=== PATIENT | male | born 1950 | race Caucasian/White ===

== ENCOUNTER 2016-08-08 15:22 | Emergency (ER) | payer OTHER ==
[2016-08-08 15:31] VITALS: BP 138/80; TEMP 98.3; BMI 31.6
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
== END 2016-08-08 17:53 | disposition home or self-care (01) ==
LOC: ED 15:22
DX: M25.512 Pain in left shoulder (principal); M25.522 Pain in left elbow; R07.89 Other chest pain; M54.2 Cervicalgia; E11.9 Type 2 diabetes mellitus without complications; W20.8XXA Other cause of strike by thrown, projected or falling object, initial encounter; F17.210 Nicotine dependence, cigarettes, uncomplicated
CPT/HCPCS: 82962; 99283

== ENCOUNTER 2016-09-15 13:10 | Outpatient (CLI) ==
[2016-09-15 13:37] LABS: FLU INTERNAL QC INTERNAL QC VALID; RAPID FLU A NEGATIVE (NEGATIVE); RAPID FLU B NEGATIVE (NEGATIVE)
== END 2016-09-15 13:11 ==
LOC: LAB 13:10
PROVIDERS: ATTEND Nurse Practitioner Family
DX: J02.9 Acute pharyngitis, unspecified (principal); R05 Cough
CPT/HCPCS: 87651; 87804; 87880

== ENCOUNTER 2017-10-16 10:09 | Outpatient (CLI) | payer OTHER ==
--- NOTE | 2017-10-16 12:36 | DI ---
EXAM: Chest two views HISTORY: Cough COMPARISON: 08/08/2016 TECHNIQUE: Two views of the chest were performed FINDINGS: The lungs are clear. There is no pleural effusion or pneumothorax. The heart is normal i n size. The mediastinal contour is normal. There are no acute abnormalities of the bones. Questiona ble hiatal hernia, unchanged IMPRESSION: 1. No acute cardiopulmonary process. 2. Questionable hiatal hernia, unchanged
== END 2017-10-16 10:10 | disposition home or self-care (01) ==
LOC: FCC-LAB 10:09
PROVIDERS: ATTEND Nurse Practitioner Family
DX: R53.83 Other fatigue (principal); R36.9 Urethral discharge, unspecified; R05 Cough; Z72.0 Tobacco use; Z20.2 Contact with and (suspected) exposure to infections with a predominantly sexual mode of transmission
CPT/HCPCS: 36415; 80053; 80074; 81001; 86592; 86631; 86695; 86696; 87389; 87800

== ENCOUNTER 2018-04-24 18:22 | Emergency (ER) ==
[2018-04-24 18:31] VITALS: BP 151/83; TEMP 98; BMI 30.1
[2018-04-24] MEDS ORDERED: DECADRON 4 MG/ML SDV IM STA ×2 (18:36→18:46)
[2018-04-24] MEDS ORDERED: DUONEB NEB STA (18:36)
[2018-04-24] MEDS ORDERED: ZITHROMAX PO STA (18:37)
[2018-04-24] MEDS ORDERED: ZITHROMAX ONE (18:40)
--- NOTE | 2018-04-24 18:40 | ED.PDOC ---
General ED Provider: Dr. ROB ROWLAND Chief Complaint: Respiratory Complaint Stated Complaint: flu like symp Time Seen by Physician: 18:38 Mode of Arrival: Walk-In Information Source: Patient Exam Limitations: No limitations Nursing and Triage Documentation Reviewed and Agree: Yes Does patient meet sepsis criteria?: No (seen with geovanni) System Inflammatory Response Syndrome: Not Applicable Sepsis Protocol: For patient's 13 years and over: Temp is 96.8 and below OR 101 and greater Pulse >90 BPM Resp >20/minute Acutely Altered Mental Status Are patient's symptoms suggestive of a new infection, such as: -Pneumonia -Skin, Soft Tissue -Endocarditis -UTI -Bone, Joint Infection -Implantable Device -Acute Abdominal Infection -Wound Infection -Meningitis -Blood Stream Catheter Infection -Unknown Respiratory Complaint Exam - Respiratory Complaint/Exam Onset/Duration: 1 week Symptoms Are: Still present Timing: Intermittent Initial Severity: Moderate Current Severity: Mild Location: Nose, Throat, Chest Character: Reports: Non-productive cough Aggravating: Reports: URI Alleviating: Reports: None Associated Signs and Symptoms: Reports: URI, Nasal congestion. Denies: Rapid breathing, Dyspnea, Fever, Chills, Chest pain, Pleuritic chest pain, Wheezing, Hemoptysis, Dizziness, Calf pain, Calf swelling, Edema, Hoarseness, Sinus discomfort, Vomiting, Sore throat, Weight loss, Decreased oral intake, Increased thirst, Increased appetite, Increased urination Related History: Reports: Similar episode Related Surgical History: Reports: None Pulmonary Embolism Risk Factors: Smoking Cardiac Risk Factors: Reports: Smoking Pseudomonas Risk Factors: Reports: None Tuberculosis Risk Factors: Reports: None Status Asthmaticus Risk Factors: Reports: None Home Oxygen Use: No Recent Stress Test: No Recent Echo/LV Function: No Current Antibiotic Use: No Current Asthma Medication Use: No Respiratory Distress: None Inadequate Respiratory Effort: No Dysphagia Present: No Stridor Present: No JVD Present: No Accessory Muscle Use: No Retractions: Not Present Diminished Breath Sounds: No Sinus Tenderness: None Grunting Respirations: No Kussmaul Respirations: No Differential Diagnoses: Pneumonia, Bronchitis, URI, Influenza, Lower Resp. Infection Review of Systems - Review Of Systems Constitutional: Reports: Malaise Eyes: Reports: No symptoms Ears, Nose, Mouth, Throat: Reports: No symptoms Respiratory: Reports: Cough Cardiac: Reports: No symptoms GI: Reports: No symptoms : Reports: No symptoms Musculoskeletal: Reports: No symptoms Skin: Reports: No symptoms Neurological: Reports: No symptoms Endocrine: Reports: No symptoms Hematologic/Lymphatic: Reports: No symptoms All Other Systems: Reviewed and Negative Past Medical History - Past Medical History Previously Healthy: No Endocrine: Reports: DM 2 Cardiovascular: Reports: None Respiratory: Reports: None Hematological: Reports: None Gastrointestinal: Reports: None Genitourinary: Reports: None Neuro/Psych: Reports: None Musculoskeletal: Reports: None Cancer: Reports: None Other Pertinent Past Medical History: HERNIA REPAIR X2[ End ]dm-diabetes has not been treated inpast 5 years - Surgical History General Surgical History: Reports: Other (HERNIA REPAIR X2) - Family History Family History: Reports: Unknown - Social History Smoking Status: Current every day smoker Hx Substance Use: No Alcohol Screening: Occasionally Physical Exam - Physical Exam Appearance: Well-appearing, No pain distress, Well-nourished Eyes: JEVON, EOMI, Conjunctiva clear ENT: Ears normal, Nose normal, Oropharynx normal Respiratory: Rhonchi Cardiovascular: RRR, Pulses normal, No rub, No murmur GI/: Soft, Nontender, No masses, Bowel sounds normal, No Organomegaly Musculoskeletal: Normal strength, ROM intact, No edema, No calf tenderness Skin: Warm, Dry, Normal color Neurological: Sensation intact, Motor intact, Reflexes intact, Cranial nerves intact, Alert, Oriented Psychiatric: Affect appropriate, Mood appropriate Critical Care Note - Critical Care Note Total Time (mins): 0 Course - Course Orders, Labs, Meds: Orders Category Date Time Status NEBULIZER TREATMENT Stat CARDIO 04/24/18 18:36 Ordered Azithromycin [Zithromax] MEDS 04/24/18 18:37 Stat 1,000 mg PO ONCE STA Dexamethasone 4 mg/ml Inj [Decadron 4 mg/ml Sdv] MEDS 04/24/18 18:36 Stat 8 mg IM ONCE STA Ipratropium/Albuterol Neb [Duoneb] MEDS 04/24/18 18:36 Stat 1 vial NEB ONCE STA Medications Discontinued Medications Generic Name Dose Route Start Last Admin Trade Name Freq PRN Reason Stop Dose Admin Albuterol/Ipratropium 1 vial 04/24/18 18:36 Duoneb NEB 04/24/18 18:37 ONCE STA Azithromycin 1,000 mg 04/24/18 18:37 Zithromax PO 04/24/18 18:38 ONCE STA Dexamethasone Sodium Phosphate 8 mg 04/24/18 18:36 Decadron 4 Mg/Ml Sdv IM 04/24/18 18:37 ONCE STA Vital Signs: Temp Pulse Resp BP Pulse Ox 04/24/18 18:25 98.0 F 58 L 20 151/83 H 96 Departure - Departure Time of Disposition: 19:00 Disposition: HOME SELF-CARE Discharge Problem: Bronchitis, Viral syndrome Instructions: Viral Syndrome (ED), Acute Bronchitis (ED) Condition: Good Pt referred to PMD for follow-up: Yes IPMP verified?: No Additional Instructions: Please call your Family Physician as soon as possible to schedule a follow-up appointment. Allergies/Adverse Reactions: Allergies No Known Allergies Allergy (Verified 04/24/18 18:29) Home Medications: Ambulatory Orders Tamsulosin HCl [Flomax] 0.4 mg PO DAILY 04/24/18
--- NOTE | 2018-04-24 19:46 | DI ---
EXAM: Two views of the chest. History: Cough. Comparison: Chest radiograph 10/16/2017 Findings: Heart size is normal. Hiatal hernia. There is bronchial wall thickening. No consolidati on. No pleural fluid and no pneumothorax. No acute osseous abnormalities. Impression: 1. Bronchial wall thickening but no consolidated pneumonia. 2. Hiatal hernia
== END 2018-04-24 19:59 | disposition home or self-care (01) ==
LOC: ED 18:22
DX: J40 Bronchitis, not specified as acute or chronic (principal); B34.9 Viral infection, unspecified; F17.210 Nicotine dependence, cigarettes, uncomplicated
CPT/HCPCS: 94640; 96372; 99283

== ENCOUNTER 2018-06-05 11:39 | Outpatient (CLI) ==
--- NOTE | 2018-06-05 12:22 | DI ---
EXAM: CHEST FRONTAL AND LATERAL VIEWS HISTORY: Cough. COMPARISON: 04/24/2018 FINDINGS: Heart size remains within normal limits. Redemonstration of aortic ectasia. No acute inf iltrates are seen. No vascular congestion. There is no consolidation, visible pleural fluid or pneu mothorax. Bones reveal no acute fracture. IMPRESSION: No acute cardiopulmonary process.
--- NOTE | 2018-06-05 12:24 | DI ---
EXAM: LEFT KNEE. HISTORY: Knee pain FINDINGS: Left knee three-view. Articular cartilage width is normal. There is no fracture or joint effusion. Bone density and soft tissues are within normal limits. IMPRESSION: Within normal limits.
== END 2018-06-05 11:40 | disposition home or self-care (01) ==
LOC: RAD 11:39
PROVIDERS: ATTEND Nurse Practitioner Family
DX: M25.562 Pain in left knee (principal)

== ENCOUNTER 2018-06-14 06:50 | Outpatient (CLI) | payer OTHER ==
--- NOTE | 2018-06-14 09:59 | US ---
EXAM: ULTRASOUND AORTA HISTORY: Aortic ectasia FINDINGS: Ultrasound aorta. Real time carrillo-scale ultrasound, color Doppler imaging and spectral dolores lysis performed. The AP and transverse measurements respectively, in centimeters are as follows: Proximal: - (Not identified) Mid: 1.8 x 1.7 Distal: 1.8 x 1.9 Right iliac: - Left iliac: - Distal aortic PSV (m/s): Not provided IMPRESSION: Limitations to the exam as described. The visualized aorta had normal caliber sonograph ically.
== END 2018-06-14 06:51 | disposition home or self-care (01) ==
LOC: RAD 06:50
PROVIDERS: ATTEND Nurse Practitioner Family
DX: I77.819 Aortic ectasia, unspecified site (principal)
CPT/HCPCS: 76775

== ENCOUNTER 2018-07-17 06:32 | Outpatient (CLI) ==
--- NOTE | 2018-07-22 10:05 | ECHO2D ---
Date of Exam: 07/17/18 Ordering Physician: DR. KADI ULLOA Room #: OP Reason for Echo: COPD, COUGH, PVC, PAC, SYSTOLIC MURMUR, AORTIC ECTASIA M-Mode Normal Adult Results LV Dimensions Normal Adult Results AoV Opening excursions >1.6 >1.6 LVEDD-base- 3.5-5.8 4.6 Ao root dimensions 2.0-3.7 3.8 LVESD-base- 3.1-4.6 L. Atrium dimensions 1.9-3.8 4.4 Post. Wall thickness 0.8-1.1 1.0 IV septum (thickness) 0.7-1.2 1.1 Post. Wall excursion 0.72-1.3 NORMAL Septal motion NORMAL Systolic motion R. Ventricular cavity 1.5-2.0 NORMAL LVEF 60% 65% Paradoxical septal wall motion NORMAL 2-D : 2-D M Mode Echocardiogram was performed using apical four chamber and left parasternal long and short axis views. Mitral, tricuspid and aortic valves appear to be normal. Contractility of the left ventricle seems to be normal, so is the cavity size. Left atrial cavity size and aortic root appear to be normal. There is no pericardial effusion. There is no thrombus noted in the left ventricular or left aortic cavity. No mitral valve prolapse noted. M-MODE: MV: NORMAL AV: NORMAL TV: NORMAL PV: CHAMBER SIZE: ENLARGED LEFT ATRIAL CAVITY WALL MOTION: NORMAL PERICARDIUM: NORMAL INTERPRETATION: 1. ENLARGED LEFT ATRIAL CAVITY (4.3 CM) 2. NORMAL LEFT VENTRICULAR CONTRACTILITY 3. NORMAL VALVES MTDD
== END 2018-07-17 06:33 | disposition home or self-care (01) ==
LOC: CAR 06:32
PROVIDERS: ATTEND Internal Medicine
DX: R06.02 Shortness of breath (principal); J44.9 Chronic obstructive pulmonary disease, unspecified; R01.1 Cardiac murmur, unspecified; I49.3 Ventricular premature depolarization; I49.1 Atrial premature depolarization; I77.819 Aortic ectasia, unspecified site
CPT/HCPCS: 36415; 82565; 93005; 93010

== ENCOUNTER 2018-07-18 06:30 | Outpatient (CLI) ==
--- NOTE | 2018-07-18 09:11 | STRESSECHO ---
Date of Test: 07/18/18 Ordering Physician: DR. KADI ULLOA/SOHAIL COCHRAN Occupation: RETIRED Reason for Exam: SOB, COPD, SYSTOLIC MURMUR Smoking History: 1 PK/DAY Height: 69" Weight: 202 LBS Current Medications: ANTIDEPRESSANT, NASAL SPRAY Resting EKG: SINUS RHYTHM/ NO ACUTE CHANGES Target Heart Rate: 129/152 S-T SEGMENT STAGE MPH/GRADE HEART RATE BPM BLOOD PRESSURE MMHG RHYTHM +/- ELEVATION DEPRESSION SYMPTOMS AT REST 62 BPM 118/68 MMHG SR X NONE 1 1.7/10% 100 BPM 132/80 MMHG SR X NONE 2 2.5/12% 130/78 MMHG SR X NONE 3 3.4/14% 4 4.2/16% 5 5.0/18% Immediately After 131 BPM 130/76 MMHG SR X FATIGUE Minutes Post Exercise 5:00 65 BPM 122/78 MMHG SR X NONE Minutes Post Exercise DURATION OF EXERCISE: 6:23 MAXIMUM HEART RATE REACHED: 131 BPM REASON FOR TERMINATION: FATIGUE 95% OXYGEN SATURATION WITH EXERCISE ON ROOM AIR METS 8.1 INTERPRETATION: 1. NO EVIDENCE OF ISCHEMIA BY ST-T WAVE 2. FEW PVC'S WITH EXERCISE--INITIALLY 3. NO CHEST PAIN OR DISCOMFORT 4. BLOOD PRESSURE RESPONSE: ACCEPTABLE NORMAL LEFT VENTRICULAR CONTRACTILITY--RESTING AND POST EXERCISE MTDD
--- NOTE | 2018-07-18 09:18 | ECHOSTRESS ---
Date of Exam: 07/18/18 Ordering Physician: DR. KADI ULLOA/ SOHAIL COCHRAN Reason for Echo: SOB, COPD, SYSTOLIC MURMUR, STRESS TEST --NO ISCHEMIA M-Mode Normal Adult Results LV Dimensions Normal Adult Results AoV Opening excursions >1.6 LVEDD-base- 3.5-5.8 Ao root dimensions 2.0-3.7 LVESD-base- 3.1-4.6 L. Atrium dimensions 1.9-3.8 Post. Wall thickness 0.8-1.1 IV septum (thickness) 0.7-1.2 Post. Wall excursion 0.72-1.3 Septal motion Systolic motion R. Ventricular cavity 1.5-2.0 LVEF 60% Paradoxical septal wall motion 2-D: NORMAL LEFT VENTRICULAR CONTRACTILITY--RESTING AND POST EXERCISE M-MODE: MV: AV: TV: PV: CHAMBER SIZE: WALL MOTION: NORMAL LEFT VENTRICULAR CONTRACTILITY--RESTING AND POST EXERCISE PERICARDIUM: INTERPRETATION: 1. NORMAL LEFT VENTRICULAR CONTRACTILITY--RESTING AND POST EXERCISE MTDD
--- NOTE | 2018-07-18 11:23 | CT ---
EXAM: CT chest with contrast HISTORY: Chronic obstructive pulmonary disease, cough COMPARISON: None TECHNIQUE: CT chest performed with intravenous contrast. Coronal and sagittal reformatted images ob tained FINDINGS: Thyroid and thoracic inlet appear normal. Heart normal in size. No pericardial effusion. Aorta normal in caliber. Mild to moderate atherosclerosis., with calcified and noncalcified athero sclerosis. Moderate hiatal hernia. No lymphadenopathy identified in the chest. Granulomatous calci fication. The the visualized portion upper abdomen demonstrates no acute abnormality. No acute abno rmalities of the bones. Degenerative change in the spine. Central airway patent. Mild emphysema. Bilateral lower airway thickening. No airspace consolidation. No pleural effusion. No pneumothorax . Mild scattered atelectasis in the right lung. Several scattered pulmonary nodules measure up to 2 mm, for example image 25, 33, 38 in the right lung and left lung image 40. IMPRESSION: 1. Bilateral lower airway thickening, suggesting small airways infection/inflammation. Mild scatter ed right-sided atelectasis. 2. Mild emphysema. 3. Several pulmonary nodules measure up to [address] chest follow-up in 12 months to ensure stability. 4. Moderate hiatal hernia. 5. Atherosclerosis. 6. Findings of old granulomatous disease.
== END 2018-07-18 06:31 | disposition home or self-care (01) ==
LOC: CAR 06:30
PROVIDERS: ATTEND Internal Medicine
DX: R06.02 Shortness of breath (principal); J44.9 Chronic obstructive pulmonary disease, unspecified; R01.1 Cardiac murmur, unspecified; I77.819 Aortic ectasia, unspecified site; I49.3 Ventricular premature depolarization; I49.1 Atrial premature depolarization; R05 Cough

== ENCOUNTER 2018-12-31 07:06 | Outpatient (CLI) ==
--- NOTE | 2018-12-31 14:55 | CT ---
EXAM: CT chest without contrast HISTORY: Follow-up lung ninth COMPARISON: 07/18/2018 TECHNIQUE: Multiple axial images of the chest were obtained without intravenous contrast. Images wer e reformatted in the sagittal and coronal planes. FINDINGS: Heterogeneous thyroid with hypodense right lobe nodule and coarse calcifications, similar. Normal he art size. No pericardial effusion. Ascending aorta is mildly dilated measuring up to 3.[address] Scattered mild atherosclerotic calcifications. No pathologically enlarged mediastinal, hilar or axillary lymph nodes. Right hilar mediastinal calcified lymph nodes/granulomas. Mild right apical emphysematous changes. Similar bilateral lower airway peribronchial thickening. C lear lungs. No pneumothorax or pleural effusion. Bilateral 2 mm pulmonary micronodules are less con spicuous than on prior exam. No new or suspicious pulmonary nodule. No acute findings within the visualized upper abdomen. Moderate hiatal hernia No acute osseous abno rmality. No aggressive osseous lesion. IMPRESSION: 1. No acute findings. 2. Decreased conspicuity of the bilateral micronodules. No new or suspicious pulmonary nodule. 3. Moderate hiatal hernia. 4. Borderline/mildly dilated ascending aorta measuring up to through point 8 cm.
== END 2018-12-31 07:07 | disposition home or self-care (01) ==
LOC: RAD 07:06
PROVIDERS: ATTEND Nurse Practitioner Family
DX: R91.8 Other nonspecific abnormal finding of lung field (principal)